=== PATIENT | female | born 1995 | race African-American/Black ===

== ENCOUNTER 2017-09-26 18:43 | Emergency (ER) | payer OTHER ==
[~2017-09-26] VITALS: Ht 170.2 cm; Wt 75.5 kg
[2017-09-26 18:43] VITALS: BP 115/76
[~2017-09-26 18:43] MED LIST: /CELE20CA PO; /LINE60TA PO; DOXY100C37 PO; INVA1INJ IV; NEUR600T PO; NUVA RING; No historical meds; OXYC-208 PO; OXYC1SOL3 PO; PERC10TA26 PO; ROXI1TAB2 PO; TYLE325T5 PO
[2017-09-26] MEDS ORDERED: IBUP-1114 PO (18:50)
[2017-09-26] MEDS ORDERED: CLIN150C14 PO (18:50)
[2017-09-26] MEDS ORDERED: BACT800T5 PO (20:17)
[2017-09-26] MEDS ORDERED: NORCOTAB PO (20:24)
[2017-09-26] MEDS ORDERED: BACTRIM 160MG/800MG DS TAB PO ONE (20:30)
[2017-09-26] MEDS ORDERED: NORCO, ANEXSIA 5/325MG TABLET (HYDROcodone/ACETAMINOPHEN) PO ONE (20:30)
== END 2017-09-26 20:40 | disposition home or self-care (01) ==
LOC: M ED 18:43
DX: L02.214 Cutaneous abscess of groin (principal)